=== PATIENT | female | born 1950 | race Caucasian/White ===

== ENCOUNTER 2018-12-18 09:51 | Observation (INO) | payer MEDICARE, OTHER ==
[~2018-12-18] VITALS: Ht 170.2 cm; Wt 147.3 kg
[~2018-12-18 09:51] MED LIST: AZAT50TA20 PO; BUPIVACAINE/PF 0.25% ONE; EPINEPHRINE 1 MG/ML, 1ML ONE; LEVO50TA5 PO; LOSA100T14 PO; NAPR220C2 PO; NEOMY/POLYMYXIN B GU IRR. 1 ML ONE
[2018-12-18] MEDS ORDERED: LACTATED RINGERS 1,000 ML IV SCH (10:15)
[2018-12-18 10:46] VITALS: BP 101/72
[2018-12-18] MEDS ORDERED: FENTANYL PF 250 MCG/5ML ONE (12:22)
[2018-12-18] MEDS ORDERED: BUPIVACAINE/PF-EPI 0.25% 1:200K INFIL ONE (13:25)
[2018-12-18] MEDS ORDERED: NEOMY/POLYMYXIN B GU IRR. 1 ML IRRIG ONE (13:25)
[2018-12-18] MEDS ORDERED: NEOSTIGMINE 1 MG/ML, 10ML ONE (13:42)
[2018-12-18] MEDS ORDERED: ROCURONIUM 10MG/ML,5ML ONE (13:42)
[2018-12-18] MEDS ORDERED: ONDANSETRON 2MG/ML, 2ML ONE (13:42)
[2018-12-18] MEDS ORDERED: GLYCOPYRROLATE 0.2MG/1ML, 5ML ONE (13:42)
[2018-12-18] MEDS ORDERED: PROPOFOL 10 MG/ML, 20ML ONE (13:42)
[2018-12-18] MEDS ORDERED: CEFAZOLIN 1,000 MG ONE (13:42)
[2018-12-18] MEDS ORDERED: SUCCINYLCHOLINE 20 MG/ML, 10ML ONE (13:42)
[2018-12-18] MEDS ORDERED: DEXAMETHASONE 4 MG/ML, 1ML ONE (13:42)
[2018-12-18] MEDS ORDERED: FENTANYL PF 100 MCG/2ML ONE (14:19)
[2018-12-18] MEDS ORDERED: ACETAMINOPHEN 650 MG/20.3 ML UDC ONE (14:19)
[2018-12-18] MEDS ORDERED: OXYcodone 5 MG/5 ML ORAL.SOL UDC ONE (14:20)
[2018-12-18] MEDS ORDERED: ONDANSETRON 2MG/ML, 2ML IV PRN ×2 (14:30→20:00)
[2018-12-18] MEDS ORDERED: HYDROmorphone 2 MG/ML, 1ML IVPush PRN (14:30)
[2018-12-18] MEDS ORDERED: LORazepam 2 MG/ML, 1ML IVPush PRN (14:30)
[2018-12-18] MEDS ORDERED: OXYcodone 5 MG/5 ML ORAL.SOL UDC PO PRN (14:30)
[2018-12-18] MEDS ORDERED: ACETAMINOPHEN 325 MG TABLET PO PRN (14:30)
[2018-12-18] MEDS ORDERED: ONDANSETRON ODT 8 MG PO PRN (14:30)
[2018-12-18] MEDS ORDERED: FENTANYL PF 100 MCG/2ML IV PRN (14:30)
[2018-12-18] MEDS ORDERED: MEPERIDINE/PF 25MG/0.5ML IVPush PRN (14:30)
[2018-12-18] MEDS ORDERED: PROMETHAZINE 25 MG/ML, 1ML IV PRN (14:30)
[2018-12-18 20:00] VITALS: BP 131/74
[2018-12-18] MEDS ORDERED: HYDROcodone/APAP 5/325 TABLET PO PRN (20:00)
[2018-12-18] MEDS ORDERED: IBUPROFEN 600 MG TABLET PO PRN (20:00)
[2018-12-18] MEDS ORDERED: KETOROLAC 30 MG/1 ML IV PRN (20:00)
[2018-12-18] MEDS ORDERED: OXYcodone/APAP 5/325MG TABLET PO PRN (20:00)
[2018-12-18] MEDS ORDERED: HYDROmorphone 1 MG/ML, 1ML IV PRN (20:00)
[2018-12-18] MEDS ORDERED: AZATHIOPRINE 50 MG TABLET PO SCH (21:00)
[2018-12-19 00:10] VITALS: BP 111/65
[2018-12-19 05:10] VITALS: BP 108/71
[2018-12-19] MEDS ORDERED: LEVOTHYROXINE 50 MCG TABLET PO SCH (06:00)
[2018-12-19 06:47] VITALS: BP 111/74
[2018-12-19] MEDS ORDERED: LOSARTAN 50MG TABLET PO SCH (09:00)
[2018-12-19 12:51] VITALS: BP 106/60
[2018-12-19 15:07] VITALS: BP 129/79
== END 2018-12-19 17:35 | disposition home or self-care (01) ==
LOC: OUT 09:51 → 4NOR 19:29 → OUT 20:51 → 4NOR 20:51 → DCLOUNGE 12-19 17:14
PROVIDERS: ADMIT Obstetrics & Gynecology Female Pelvic Medicine and Reconstructive Surgery; ATTEND Obstetrics & Gynecology Female Pelvic Medicine and Reconstructive Surgery
DX: N39.46 Mixed incontinence (principal); N90.7 Vulvar cyst; N32.81 Overactive bladder; N81.10 Cystocele, unspecified; N81.5 Vaginal enterocele; R10.2 Pelvic and perineal pain; E03.9 Hypothyroidism, unspecified; I10 Essential (primary) hypertension; K75.4 Autoimmune hepatitis; N81.6 Rectocele; Z87.442 Personal history of urinary calculi
CPT/HCPCS: 57268; 88305; C1771; G0378; J0171; J0330; J0690; J1100; J2405; J2704; J2710; J3010; J3490; J7120; J7500

== ENCOUNTER → 2019-01-15 | Outpatient (CLI) | payer MEDICARE ==
[~2019-01-15] MED LIST changes: -BUPIVACAINE/PF 0.25% ONE; -EPINEPHRINE 1 MG/ML, 1ML ONE; -NEOMY/POLYMYXIN B GU IRR. 1 ML ONE
== END | disposition home or self-care (01) ==
LOC: CVU 15:37
PROVIDERS: ATTEND Family Medicine
DX: I11.9 Hypertensive heart disease without heart failure (principal); G43.909 Migraine, unspecified, not intractable, without status migrainosus
CPT/HCPCS: 93306

== ENCOUNTER 2019-05-18 10:48 | Outpatient (CLI) | payer MEDICARE | END 2019-05-18 23:59 | disposition home or self-care (01) | LOC: CFH 10:48 | PROVIDERS: ATTEND Internal Medicine | DX: J43.2 Centrilobular emphysema (principal); R91.8 Other nonspecific abnormal finding of lung field; I70.0 Atherosclerosis of aorta; M85.88 Other specified disorders of bone density and structure, other site | CPT/HCPCS: 71250 ==

== ENCOUNTER → 2019-09-04 | Outpatient (CLI) | payer MEDICARE | END | disposition home or self-care (01) | LOC: PETCFH 12:26 | PROVIDERS: ATTEND Nurse Practitioner | DX: R91.8 Other nonspecific abnormal finding of lung field (principal); K75.4 Autoimmune hepatitis; I10 Essential (primary) hypertension; E03.9 Hypothyroidism, unspecified; E66.9 Obesity, unspecified | CPT/HCPCS: 78815; A9552 ==

== ENCOUNTER → 2020-09-03 | Outpatient (CLI) | payer MEDICARE | END | disposition home or self-care (01) | LOC: RAD 16:07 → EDSTATUS 16:30 | PROVIDERS: ATTEND Internal Medicine | DX: R91.1 Solitary pulmonary nodule (principal) | CPT/HCPCS: 71250 ==

== ENCOUNTER → 2020-09-15 | Outpatient (CLI) | payer MEDICARE ==
[2020-09-15 14:47] LABS: ALANINE AMINOTRANSFERASE 10 U/L (12-78); ALBUMIN 3.1 g/dL (3.4-5.0); ANION GAP 5 mmol/L (5-15); CALCIUM 8.5 mg/dL (8.5-10.1); CHLORIDE 109 mmol/L (98-107); CREATININE 1.11 mg/dL (0.55-1.02)
[2020-09-15 14:49] LABS: ALKALINE PHOSPHATASE 99 U/L (45-117); BILIRUBIN,TOTAL 0.3 mg/dL (0.2-1.0); TOTAL PROTEIN 9.3 g/dL (6.4-8.2)
== END | disposition home or self-care (01) ==
LOC: STAR 13:33
PROVIDERS: ATTEND Internal Medicine
DX: Z01.812 Encounter for preprocedural laboratory examination (principal); Z20.828 Contact with and (suspected) exposure to other viral communicable diseases; R91.8 Other nonspecific abnormal finding of lung field
CPT/HCPCS: 80053; 87635; 93005

== ENCOUNTER 2020-09-19 06:27 | Day surgery (SDC) | payer MEDICARE ==
[~2020-09-19] VITALS: Ht 170.2 cm; Wt 137.9 kg
[2020-09-19 07:06] VITALS: BP 129/79
[2020-09-19] MEDS ORDERED: CHLORHEXIDINE 15 ML UDC MM ONE (07:30)
[2020-09-19] MEDS ORDERED: LACTATED RINGERS 1,000 ML IV SCH (07:30)
[2020-09-19] MEDS ORDERED: FENTANYL PF 100 MCG/2ML ONE (08:56)
[2020-09-19] MEDS ORDERED: LIDOCAINE 4%, 4 ML SYR/CANN TP ONE (09:45)
[2020-09-19] MEDS ORDERED: DEXAMETHASONE 4 MG/ML, 1ML ONE (09:45)
[2020-09-19] MEDS ORDERED: ONDANSETRON 2MG/ML, 2ML ONE (10:46)
[2020-09-19] MEDS ORDERED: GLYCOPYRROLATE 0.2MG/1ML, 5ML ONE (10:46)
[2020-09-19] MEDS ORDERED: PROPOFOL 10 MG/ML, 20ML ONE (10:46)
[2020-09-19] MEDS ORDERED: CEFAZOLIN 1,000 MG ONE (10:46)
[2020-09-19] MEDS ORDERED: NEOSTIGMINE 1 MG/ML, 10ML ONE (10:46)
[2020-09-19] MEDS ORDERED: SUGAMMADEX 200 MG/2 ML IVPush ONE (10:46)
[2020-09-19] MEDS ORDERED: ROCURONIUM 10MG/ML,5ML ONE (10:46)
[2020-09-19] MEDS ORDERED: SUCCINYLCHOLINE 20 MG/ML, 10ML ONE (10:46)
[2020-09-19] MEDS ORDERED: ONDANSETRON 2MG/ML, 2ML IVPush PRN (11:00)
[2020-09-19] MEDS ORDERED: PROMETHAZINE 25 MG/ML, 1ML IVPush PRN (11:00)
[2020-09-19] MEDS ORDERED: hydrALAzine 20 MG/ML, 1ML IV PRN (11:00)
[2020-09-19] MEDS ORDERED: ACETAMINOPHEN 325 MG TABLET PO PRN (11:00)
[2020-09-19] MEDS ORDERED: OXYcodone 5 MG/5 ML ORAL.SOL UDC PO PRN (11:00)
[2020-09-19] MEDS ORDERED: ALBUTEROL SULFATE 2.5 MG/3 ML NPPB PRN (11:00)
[2020-09-19] MEDS ORDERED: METHOCARBAMOL 1,000 MG in DEXTROSE 5% 100 ML IV PRN (11:00)
[2020-09-19] MEDS ORDERED: PROMETHAZINE 25 MG SUPP PR PRN (11:00)
[2020-09-19] MEDS ORDERED: HYDROmorphone 1 MG/ML, 1ML INJ IVPush PRN (11:00)
[2020-09-19] MEDS ORDERED: LORazepam 2 MG/ML, 1ML IVPush PRN (11:00)
[2020-09-19] MEDS ORDERED: FENTANYL PF 100 MCG/2ML IV PRN (11:00)
[2020-09-19] MEDS ORDERED: LABETALOL 5MG/ML, 20ML IV PRN (11:00)
== END 2020-09-19 12:00 | disposition home or self-care (01) ==
LOC: OUT 06:27
PROVIDERS: ATTEND Internal Medicine
DX: R91.8 Other nonspecific abnormal finding of lung field (principal); J44.9 Chronic obstructive pulmonary disease, unspecified; I10 Essential (primary) hypertension; G47.30 Sleep apnea, unspecified; K75.4 Autoimmune hepatitis; E66.9 Obesity, unspecified; Z79.899 Other long term (current) drug therapy
CPT/HCPCS: 31624; 31627; 31628; 31629; 71045; 87015; 87070; 87102; 87116; 87205; 87206; 88112; 88172; 88173; 88177; 88305; J0330; J0690; J1100; J2405; J2704; J2710; J3010; J7120; 31652; 76000

== ENCOUNTER → 2021-05-19 | Outpatient (CLI) | payer MEDICARE | END | disposition home or self-care (01) | LOC: CFH 10:09 | PROVIDERS: ATTEND Internal Medicine | DX: R91.8 Other nonspecific abnormal finding of lung field (principal) | CPT/HCPCS: 71250 ==